=== PATIENT | male | born 1940 | race Caucasian/White ===

== ENCOUNTER 2020-03-19 21:05 | Emergency (ER) | payer MEDICARE ==
[~2020-03-19] VITALS: Ht 180.3 cm; Wt 111.7 kg
[2020-03-19] MEDS ORDERED: ASPIRIN 325 MG (5 GR) TABLET PO ONE (21:15)
[2020-03-19 21:18] LABS: HEMATOCRIT 45 % (40-54); HEMOGLOBIN 15.5 G/DL (13.3-17.7); MEAN CORPUSCULAR HEMOGLOBIN 31 PG (25-34); MEAN CORPUSCULAR HGB CONC 35 G/DL (32-36); MEAN CORPUSCULAR VOLUME 90 FL (80-99); MEAN PLATELET VOLUME 9.3 FL (7.4-10.4); PLATELET COUNT 229 10^3/uL (130-400)
[2020-03-19 21:19] LABS: BASOPHILS # (AUTO) 0.1 10^3/uL (0.0-0.1); BASOPHILS % (AUTO) 1 % (0-10); EOSINOPHILS # (AUTO) 0.2 10^3/uL (0.0-0.3); EOSINOPHILS % (AUTO) 2 % (0-10); LYMPHOCYTES # (AUTO) 2.3 X 10^3 (1.0-4.0); LYMPHOCYTES % (AUTO) 19 % (12-44); MONOCYTES # (AUTO) 1.1 X 10^3 (0.0-1.0); MONOCYTES % (AUTO) 9 % (0-12); NEUTROPHILS # (AUTO) 8.3 X 10^3 (1.8-7.8); NEUTROPHILS % (AUTO) 69 % (42-75)
[2020-03-19 21:28] LABS: PROTHROMBIN TIME PATIENT 13.9 SEC (12.2-14.7)
--- NOTE | 2020-03-19 21:30 | Diagnostic Imaging Report ---
INDICATION: Chest pain over the past couple of days. TECHNIQUE: Single view chest, 9:11 PM. CORRELATION STUDY: None. FINDINGS: Poststernotomy changes. Heart size is borderline enlarged. Mediastinum is prominent. No evidence of overt failure. The lungs are clear with no consolidating infiltrate. There is no significant effusion or pneumothorax. IMPRESSION: Prior sternotomy changes. Negative for acute abnormality. Cardiac enlargement without failure. Dictated by: Dictated on workstation # [id number]
[2020-03-19 21:34] LABS: SODIUM 140 MMOL/L (135-145)
[2020-03-19 21:35] LABS: ALANINE AMINOTRANSFERASE 13 U/L (0-55); ALBUMIN 4.2 GM/DL (3.2-4.5); ALKALINE PHOSPHATASE 68 U/L (40-136); BILIRUBIN,TOTAL 0.4 MG/DL (0.1-1.0); BUN/CREATININE RATIO 10; CALCIUM 9.8 MG/DL (8.5-10.1); CARBON DIOXIDE 24 MMOL/L (21-32); CHLORIDE 103 MMOL/L (98-107); CREATININE SERUM 1.46 MG/DL (0.60-1.30); GFR ESTIMATED 46; GLUCOSE 156 MG/DL (70-105); POTASSIUM 4.3 MMOL/L (3.6-5.0); TOTAL PROTEIN 6.9 GM/DL (6.4-8.2)
[2020-03-19] MEDS ORDERED: CARV12.53 (21:44)
[2020-03-19] MEDS ORDERED: FINA5TAB6 (21:44)
[2020-03-19] MEDS ORDERED: LEVO75TA6 (21:44)
[2020-03-19] MEDS ORDERED: ISOS30TA3 (21:44)
[2020-03-19] MEDS ORDERED: MEMA5TAB43 (21:44)
[2020-03-19] MEDS ORDERED: TAMSULOSIN (21:44)
[2020-03-19] MEDS ORDERED: DONE10TA41 (21:44)
[2020-03-19] MEDS ORDERED: LOVA40TA2 (21:44)
[2020-03-19] MEDS ORDERED: AMLO5TAB9 (21:44)
[2020-03-19] MEDS ORDERED: ASPI-999 PO (21:44)
[2020-03-19] MEDS ORDERED: PANT20TA18 (21:44)
--- NOTE | 2020-03-19 22:20 | ED Chest Pain ---
General Chief Complaint: Chest Pain Stated Complaint: CHEST PAIN Nursing Triage Note: pt reports intermittent chest pain x 2-3 days, no precipitating factors. no pain upon arrival Nursing Sepsis Screen: No Definite Risk History of Present Illness Date Seen by Provider: Mar 19, 2020 Time Seen by Provider: 21:25 Initial Comments The patient is an 79-year-old male with a history of hypertension, hyperlipidemia, coronary artery disease status post CABG and dementia who presents for evaluation of what he describes as 3-4 days of intermittent dull nonexertional and nonpleuritic chest discomfort localizing just to the right of his lower sternal midline. Discomfort is achy and nothing seems to bring it on or make it better or worse as far as the patient can tell. It does not radiate. Severity 0 out of 10 at present; patient last had the pain about an hour prior to arrival. He states it will tend to come on for an hour or two at a time before resolving. No associated fevers, nausea or vomiting, upper respiratory congestion/rhinorrhea, cough, shortness of breath, abdominal pain, flank pain, back pain, dysuria or hematuria, changes in bowel habits. Allergies and Home Medications Allergies Coded Allergies: Penicillins (Verified Allergy, Unknown, 03/19/20) hydromorphone (Verified Allergy, Unknown, 03/19/20) metoprolol (Verified Allergy, Unknown, 03/19/20) Patient Home Medication List Home Medication List Reviewed: Yes Review of Systems Review of Systems Constitutional: see HPI All Other Systems Reviewed Negative Unless Noted: Yes (Negative excepted noted.) Past Mtkwizz-Phvvax-Exccds Hx Past Med/Social Hx: Reviewed Nursing Past Med/Soc Hx Patient Social History Alcohol Use: Denies Use Recreational Drug Use: No Smoking Status: Never a Smoker 2nd Hand Smoke Exposure: No Recent Foreign Travel: No Contact w/Someone Who Travel: No Recent Infectious Disease Expo: No Recent Hopitalizations: No Physical Abuse: No Sexual Abuse: No Mistreated: No Fear: No Seasonal Allergies Seasonal Allergies: No Past Medical History Surgeries: Yes CABG, Gallbladder, Orthopedic Respiratory: No Cardiac: Yes Hypertension Neurological: Yes Dementia Genitourinary: No Gastrointestinal: Yes Gastroesophageal Reflux Musculoskeletal: No Endocrine: No HEENT: No Cancer: Yes Psychosocial: No Integumentary: No Blood Disorders: No Family Medical History Reviewed Nursing Family Hx Physical Exam Vital Signs Vital Signs - First Documented 03/19/20 21:07 Temp 36.4 Pulse 65 Resp 21 B/P (MAP) 163/50 (87) Pulse Ox 95 O2 Delivery Room Air Capillary Refill : Less Than 3 Seconds Height, Weight, BMI Height: '" Weight: lbs. oz. kg; 34.00 BMI Method: General Appearance: No Apparent Distress Other comments This is a very elderly male appearing nontoxic and in no acute distress. Head is normocephalic and atraumatic. Neck is supple and nontender. Oropharynx is moist. Lungs are clear to auscultation at all stations. There is a normal S1 and S2 without rubs or gallops and capillary refill is appropriate, less than 2 seconds globally. Abdomen is soft, nontender and nondistended. Skin is warm and dry without cyanosis, clubbing or edema. Psychiatrically, the patient demonstrates appropriate mood and affect and is alert. Progress/Results/Core Measures Results/Orders Lab Results Laboratory Tests Test 03/19/20 20:55 Range/Units White Blood Count 12.0 H 4.3-11.0 10^3/uL Red Blood Count 4.94 4.35-5.85 10^6/uL Hemoglobin 15.5 13.3-17.7 G/DL Hematocrit 45 40-54 % Mean Corpuscular Volume 90 80-99 FL Mean Corpuscular Hemoglobin 31 25-34 PG Mean Corpuscular Hemoglobin Concent 35 32-36 G/DL Red Cell Distribution Width 12.9 10.0-14.5 % Platelet Count 229 130-400 10^3/uL Mean Platelet Volume 9.3 7.4-10.4 FL Immature Granulocyte % (Auto) 0 % Neutrophils (%) (Auto) 69 42-75 % Lymphocytes (%) (Auto) 19 12-44 % Monocytes (%) (Auto) 9 0-12 % Eosinophils (%) (Auto) 2 0-10 % Basophils (%) (Auto) 1 0-10 % Neutrophils # (Auto) 8.3 H 1.8-7.8 X 10^3 Lymphocytes # (Auto) 2.3 1.0-4.0 X 10^3 Monocytes # (Auto) 1.1 H 0.0-1.0 X 10^3 Eosinophils # (Auto) 0.2 0.0-0.3 10^3/uL Basophils # (Auto) 0.1 0.0-0.1 10^3/uL Immature Granulocyte # (Auto) 0.0 0.0-0.1 10^3/uL Prothrombin Time 13.9 12.2-14.7 SEC INR Comment 1.0 0.8-1.4 Activated Partial Thromboplast Time 28 24-35 SEC Sodium Level 140 135-145 MMOL/L Potassium Level 4.3 3.6-5.0 MMOL/L Chloride Level 103 98-107 MMOL/L Carbon Dioxide Level 24 21-32 MMOL/L Anion Gap 13 5-14 MMOL/L Blood Urea Nitrogen 15 7-18 MG/DL Creatinine 1.46 H 0.60-1.30 MG/DL Estimat Glomerular Filtration Rate 46 BUN/Creatinine Ratio 10 Glucose Level 156 H 70-105 MG/DL Calcium Level 9.8 8.5-10.1 MG/DL Corrected Calcium 9.6 8.5-10.1 MG/DL Total Bilirubin 0.4 0.1-1.0 MG/DL Aspartate Amino Transf (AST/SGOT) 17 5-34 U/L Alanine Aminotransferase (ALT/SGPT) 13 0-55 U/L Alkaline Phosphatase 68 40-136 U/L Troponin I < 0.30 <0.30 NG/ML Pro-B-Type Natriuretic Peptide 573.4 H <75.0 PG/ML Total Protein 6.9 6.4-8.2 GM/DL Albumin 4.2 3.2-4.5 GM/DL My Orders Orders - ANNE MARIE METCALF MD Cbc With Automated Diff (03/19/20 21:07) Comprehensive Metabolic Panel (03/19/20 21:07) Troponin I Fs (03/19/20 21:07) Ekg Tracing (03/19/20 21:07) Chest 1 View Ap/Pa Only (03/19/20 21:07) Protime With Inr (03/19/20 21:07) Partial Thromboplastin Time (03/19/20 21:07) Probnp Fs (03/19/20 21:07) Aspirin Tablet (Aspirin Tablet) (03/19/20 21:15) Medications Given in ED Current Medications Medications Dose Ordered Sig/Rbidger Route Start Time Stop Time Status Last Admin Dose Admin Aspirin 325 mg ONCE ONCE PO 03/19/20 21:15 10/3/20 21:16 DC 03/19/20 21:36 325 MG Vital Signs/I&O 03/19/20 03/19/20 21:07 21:07 Temp 36.4 Pulse 65 Resp 21 B/P (MAP) 163/50 (87) Pulse Ox 95 O2 Delivery Room Air Room Air Blood Pressure Mean: 87 Progress Progress Note : Time: 22:00 Progress Note Large workup is without evidence of acute process aside from mild elevation in BNP without findings of fluid overload. Patient is at elevated risk by HEART score for acute coronary syndrome given his nonexertional and nonpleuritic retrosternal chest discomfort over the past few days. Will require admission. Family request [facility] where his tactical intelligence officer is located. He is therefore graciously accepted in transfer to that facility by Dr. Magdaleno. EKG : Comment Sinus rhythm, rate 64, no acute ST elevation or depression, MD 193, QRS 114, QTC 410, EP interpretation. Diagnostic Imaging Comments Date of Exam:03/19/20 CHEST 1 VIEW AP/PA ONLY INDICATION: Chest pain over the past couple of days. TECHNIQUE: Single view chest, 9:11 PM. CORRELATION STUDY: None. FINDINGS: Poststernotomy changes. Heart size is borderline enlarged. Mediastinum is prominent. No evidence of overt failure. The lungs are clear with no consolidating infiltrate. There is no significant effusion or pneumothorax. IMPRESSION: Prior sternotomy changes. Negative for acute abnormality. Cardiac enlargement without failure. Dictated by: Dictated on workstation # [id number] Departure Impression Primary Impression: Other chest pain Disposition: [facility] Condition: Stable Transfer Transfer Reason: Patient preference Transfer Progress Notes Family prefer [facility]. They understand that [place] has the necessary services, yet decline [place] transfer. Departure-Patient Inst. Referrals: KAUSHAL JIMENEZ MD (PCP/Family) Primary Care Physician ANNE MARIE METCALF MD Mar 19, 2020 22:20
[2020-03-20 01:30] VITALS: BP 115/36
--- NOTE | 2020-03-20 01:30 | NUR ---
ems here report and care given
== END 2020-03-20 01:30 | disposition short-term general hospital (02) ==
LOC: ER FS 21:07
DX: R07.89 Other chest pain (principal); Z95.1 Presence of aortocoronary bypass graft; Z88.0 Allergy status to penicillin; Z88.5 Allergy status to narcotic agent; Z88.8 Allergy status to other drugs, medicaments and biological substances
CPT/HCPCS: 36415; 71045; 80053; 83880; 84484; 85025; 85610; 85730